=== PATIENT | female | born 1975 | race Caucasian/White ===

== ENCOUNTER 2022-04-06 12:57 | Observation (INO) ==
--- NOTE | 2022-04-06 13:27 | Emergency Department Note ---
Impression & Plan Transient cerebral ischemia ED Provider Note CHIEF COMPLAINT: Stroke symptoms HISTORY OF PRESENT ILLNESS: This 46-year-old female patient presents to the emergency department with complaints of left-sided facial numbness and difficulty speaking at approximately 1215 today. She states she was on the telephone when symptoms occurred. Her speech has returned to normal and did start about 15 minutes after the onset of symptoms however she still feels "out of it" and fairly weak. Patient did not have any upper or lower extremity symptoms. She did ambulate from triage into the examination room. Patient does have a history of Raynaud's disease, scleroderma and lupus. She does not take any blood thinners but is currently taking prednisone which she just started 2 weeks ago. She denies any recent illnesses or trauma. REVIEW OF SYSTEMS: A review of systems was performed with positives and pertinent negatives listed in the history of present illness. 10 systems were reviewed and are otherwise negative. ALLERGIES: see below MEDICATIONS: see below PMH: see below SOCIAL HISTORY: see below DDx: Infection, dehydration, metabolic abnormality, hypo/hyperglycemia, electrol yte disturbance, anemia, hypoxia, cardiac sources, intracerebral event, toxicologic, neurologic, as well as other pathologies. PHYSICAL EXAM: Vital signs reviewed. General: Well-appearing 46-year-old female, in no significant distress. HEENT: No scleral icterus, PERRLA, neck supple. Atraumatic. Moist mucous membranes. Cardiovascular: Regular rate and rhythm, no extra sounds. Pulmonary: Clear to auscultation bilaterally, normal work of breathing. Abdomen: Soft, nontender, nondistended, positive bowel sounds. Musculoskeletal: Atraumatic, no peripheral edema. Neurologic: Patient awake alert and oriented x 3, speech is slow and deliberate but clear. Equal strength in all 4 extremities, negative pronator drift. Intact [id number]. Skin: Warm, dry, no rash EMERGENCY DEPARTMENT COURSE/MDM: This patient was evaluated and appeared to be in no significant distress. A stroke alert had been called from triage. I did respond to the patient's bedside and she was taken to CAT scan almost immediately for CT/CTA of the head and neck. Neurologic exam was largely intact. There is no focal neurologic deficit identified. She does have some risk factors including lupus. Patient was started on IV hydration. CT imaging is negative for focal stenosis or occlusion. There is no evidence of acute ischemia. Patient remained asymptomatic and if anything improved slightly with her speech timing. Case was discussed with Dr. Berrios the hospitalist service will evaluate the patient for admission and further management. Patient was made aware of the findings and plan and agreed. MONITORING: An order for cardiac monitoring was placed and the patient is noted to be in a NSR at 84 beats per minute. RADIOLOGY: See below EKG: Normal sinus rhythm at [address] segments. QTC of 393. Normal axis, no PVC, no PAC. No previous EKGs for comparison. DISPOSITION: Admission Past Med/Surg History Medical History Eosinophilic pneumonia ILD (interstitial lung disease) Lupus Multinodular thyroid Raynaud phenomenon Family History Aunt Thyroid disease Grandmother (Maternal) Thyroid disease Social History Smoking Status: Never smoker Preferred Language: Syriac Feels Safe at Home: Yes Allergies Allergies Allergy/AdvReac Type Severity Reaction Status Date / Time No Known Allergies Allergy Unverified 04/06/22 14:20 Home Meds Home Medications Medication Instructions Recorded Confirmed prednisone 10 mg tablet 10 mg PO .TAPER UD 04/06/22 04/06/22 Results & Data (ED) Vital Signs Vital Signs - 24 hr 04/06/22 13:04 04/06/22 13:28 04/06/22 13:39 Temperature 36.8 C Temperature Source Temporal Artery Scan Pulse Rate 84 Pulse Rate [Right Finger] 72 Respiratory Rate 16 20 Respiratory Effort / Characteristics Non-Labored Non-Labored Respiratory Depth Normal Normal Respiratory Pattern Regular Blood Pressure 147/68 H Blood Pressure [Right Arm] 137/68 Blood Pressure Mean 94 Blood Pressure Mean [Right Arm] 91 Pulse Oximetry 100 100 Oxygen Delivery Method Room Air Room Air Room Air Sepsis Recent Fever Within 48 Hours No Sepsis New/Unexplained Change in Mental Status No Sepsis Action Taken by Nursing No Action Required 04/06/22 13:45 04/06/22 14:01 04/06/22 14:14 Temperature Temperature Source Pulse Rate Pulse Rate [Right Finger] 72 68 72 Respiratory Rate 24 20 16 Respiratory Effort / Characteristics Non-Labored Non-Labored Non-Labored Respiratory Depth Normal Normal Normal Respiratory Pattern Blood Pressure Blood Pressure [Right Arm] 137/68 149/83 H 137/82 Blood Pressure Mean Blood Pressure Mean [Right Arm] 91 105 100 Pulse Oximetry 100 100 100 Oxygen Delivery Method Room Air Room Air Room Air Sepsis Recent Fever Within 48 Hours Sepsis New/Unexplained Change in Mental Status Sepsis Action Taken by Nursing 04/06/22 14:22 Temperature Temperature Source Pulse Rate Pulse Rate [Right Finger] 72 Respiratory Rate 20 Respiratory Effort / Characteristics Non-Labored Respiratory Depth Normal Respiratory Pattern Blood Pressure Blood Pressure [Right Arm] 157/92 H Blood Pressure Mean Blood Pressure Mean [Right Arm] 113 Pulse Oximetry 99 Oxygen Delivery Method Room Air Sepsis Recent Fever Within 48 Hours Sepsis New/Unexplained Change in Mental Status Sepsis Action Taken by [facility] Medications Current Medication List: was personally reviewed by me Laboratory Data Attestation: I reviewed the patient's lab results. Result diagrams: 04/06/22 13:19 04/06/22 13:19 Lab Results 04/06/22 04/06/22 04/06/22 Range/Units 13:19 13:19 13:19 WBC 8.50 (4.8-10.8) K/ul RBC 4.45 (3.93-5.22) M/uL Hgb 13.4 (12.0-16.0) g/dl POC Hgb (12.0-16.0) g/dl Hct 41.3 (34.1-44.9) % POC Hct (37-47) % MCV 92.8 (80.0-100.0) fL MCH 30.1 (25.0-34.0) pg MCHC 32.4 (32.0-36.0) g/dL RDW Std Deviation 47.4 H (36.4-46.3) fL RDW Coeff of Agnes 14.1 (11.5-14.5) % Plt Count 287 (130-400) K/uL MPV 10.3 (9.4-12.3) fL Immature Gran % (Auto) 0.5 % Neut % (Auto) 67.9 % Lymph % (Auto) 25.5 % Catron % (Auto) 5.3 % Eos % (Auto) 0.6 % Baso % (Auto) 0.2 % Neut # (Auto) 5.77 (1.4-6.5) K/uL Lymph # (Auto) 2.17 (1.2-3.4) K/uL Catron # (Auto) 0.45 (0.24-0.82) K/uL Eos # (Auto) 0.05 (0-0.50) K/uL Baso # (Auto) 0.02 (0-0.2) K/uL Immature Gran # (Auto) 0.04 H (0.00-0.02) K/uL PT 10.7 (9.0-12.0) Seconds INR 1.0 (0.9-1.1) APTT 25.0 (21.0-31.0) Seconds PTT Ratio 0.9 POC Sodium (135-144) mmol/L Sodium 138 (136-145) mmol/L POC Potassium (3.3-5.0) mmol/L Potassium 3.7 (3.5-5.1) mmol/L POC Chloride (101-112) mmol/L Chloride 103 (98-107) mmol/L Carbon Dioxide 30 (21-32) mmol/L POC Total CO2 (24-31) mmol/L Anion Gap 5 (3-11) POC Anion Gap (16-25) mmol/L POC BUN (7-18) mg/dl BUN 11 (6-23) mg/dl Creatinine 0.78 (0.6-1.2) mg/dl POC Creatinine (0.6-1.3) mg/dl Est Cr Clr Drug Dosing 103.4 ml/min Est GFR ( Amer) 106.4 ml/min Est GFR (Non-Af Amer) 91.8 ml/min BUN/Creatinine Ratio 14.1 (10-20) Glucose 94 (70-99(Fasting)) mg/dl POC Glucose (other) (70-99) mg/dl Calcium 9.2 (8.5-10.1) mg/dl POC Ioniz Calcium Manjinder (1.12-1.32) mmol/l Magnesium 1.9 (1.7-2.4) mg/dl Total Bilirubin 0.4 (0.2-1.0) mg/dl AST 9 L (13-39) U/L ALT 9 (7-52) U/L Alkaline Phosphatase 51 (34-104) U/L Troponin I High Sens 11.1 (0-14) pg/ml Total Protein 7.9 (6.0-8.3) gm/dl Albumin 3.8 (3.4-5.0) gm/dl Globulin 4.1 H (2.5-4.0) gm/dl Albumin/Globulin Ratio 0.9 (0.9-2) TSH (0.300-4.500) uIu/ml SARS-CoV-2, RNA, NAAT (NEGATIVE) 04/06/22 04/06/22 04/06/22 Range/Units 13:21 13:22 13:36 WBC (4.8-10.8) K/ul RBC (3.93-5.22) M/uL Hgb (12.0-16.0) g/dl POC Hgb 14.3 (12.0-16.0) g/dl Hct (34.1-44.9) % POC Hct 42 (37-47) % MCV (80.0-100.0) fL MCH (25.0-34.0) pg MCHC (32.0-36.0) g/dL RDW Std Deviation (36.4-46.3) fL RDW Coeff of Agnes (11.5-14.5) % Plt Count (130-400) K/uL MPV (9.4-12.3) fL Immature Gran % (Auto) % Neut % (Auto) % Lymph % (Auto) % Catron % (Auto) % Eos % (Auto) % Baso % (Auto) % Neut # (Auto) (1.4-6.5) K/uL Lymph # (Auto) (1.2-3.4) K/uL Catron # (Auto) (0.24-0.82) K/uL Eos # (Auto) (0-0.50) K/uL Baso # (Auto) (0-0.2) K/uL Immature Gran # (Auto) (0.00-0.02) K/uL PT (9.0-12.0) Seconds INR (0.9-1.1) APTT (21.0-31.0) Seconds PTT Ratio POC Sodium 140 (135-144) mmol/L Sodium (136-145) mmol/L POC Potassium 3.7 (3.3-5.0) mmol/L Potassium (3.5-5.1) mmol/L POC Chloride 102 (101-112) mmol/L Chloride (98-107) mmol/L Carbon Dioxide (21-32) mmol/L POC Total CO2 30 (24-31) mmol/L Anion Gap (3-11) POC Anion Gap 14.0 L (16-25) mmol/L POC BUN 10 (7-18) mg/dl BUN (6-23) mg/dl Creatinine (0.6-1.2) mg/dl POC Creatinine 0.8 (0.6-1.3) mg/dl Est Cr Clr Drug Dosing ml/min Est GFR ( Amer) ml/min Est GFR (Non-Af Amer) ml/min BUN/Creatinine Ratio (10-20) Glucose (70-99(Fasting)) mg/dl POC Glucose (other) 95 (70-99) mg/dl Calcium (8.5-10.1) mg/dl POC Ioniz Calcium Manjinder 1.21 (1.12-1.32) mmol/l Magnesium (1.7-2.4) mg/dl Total Bilirubin (0.2-1.0) mg/dl AST (13-39) U/L ALT (7-52) U/L Alkaline Phosphatase (34-104) U/L Troponin I High Sens (0-14) pg/ml Total Protein (6.0-8.3) gm/dl Albumin (3.4-5.0) gm/dl Globulin (2.5-4.0) gm/dl Albumin/Globulin Ratio (0.9-2) TSH 1.235 (0.300-4.500) uIu/ml SARS-CoV-2, RNA, NAAT NEGATIVE (NEGATIVE) Administered Medications Sodium Chloride (Nss 1000ml) 1,000 mls @ 100 mls/hr IV .Q10H GAUTAM Stop: 05/06/22 13:14 Last Admin: 04/06/22 13:56 Dose: 100 mls/hr Documented By: NRB Discontinued Medications Ioversol (Optiray 320 500ml) 120 ml IV ONCE ONE Stop: 04/06/22 13:29 Last Admin: 04/06/22 13:28 Dose: 120 ml Documented By: CRISTIAN Imaging Data Radiologist's Impression: Chest X-Ray 04/06/22 13:12 XR chest 1V portable CLINICAL HISTORY: Stroke Like Symptoms TECHNIQUE: Single frontal radiograph of the chest was obtained. Comparison: None available at the time of this dictation. FINDINGS: No lines and tubes are seen. The cardiomediastinal silhouette is mildly prominent. The lungs are clear. No evidence of pleural effusion or pneumothorax. IMPRESSION: No acute chest disease. ACT 112: Negative or not required by law. Electronically signed by: Rehan Muñoz M.D. 04/06/2022 2:[address] 04/06/22 13:[address] DOSE: HISTORY: Stroke Like Symptoms TECHNIQUE: Multiaxial CT images of the head were performed without the use of intravenous contrast. Automated exposure control was utilized for this study. A dose lowering technique was utilized adhering to the principles of ALARA. Comparison: None. Findings: The paranasal sinuses and mastoid air cells are clear. The calvarium and skull base are intact. The ventricles and sulci are within normal limits. There is no mass, hematoma, midline shift, or acute infarct. Impression: No acute intracranial abnormality. ACT 112: Negative or not required by law. Electronically signed by: Malcom Kingston M.D. 04/06/2022 1:38 PM Head CTA 04/06/22 13:[address], HEAD & NECK CTA HISTORY: Headache. Slurred speech. Stroke Like Symptoms TECHNIQUE: Multiaxial CT images of the head were performed following the intravenous administration of contrast to evaluate the major cerebral vessels. Multiaxial CT images of the neck were also performed following the intravenous administration of contrast to evaluate the major cervical vessels. Maximum intensity projection images were also obtained. A dose lowering technique was utilized adhering to the principles of ALARA. COMPARISON: Head CT 04/06/2022. FINDINGS: There is no mass, hematoma, midline shift, or acute infarct. Visualized intracranial internal carotid arteries, distal vertebral arteries, and basilar artery are widely patent. There is no significant stenosis, occlusion, or aneurysm seen within the bilateral ACAs, MCAs, or historian research assistant. The major dural venous sinuses are patent. The aortic arch and proximal great vessels are widely patent. There is no significant stenosis, occlusion, or dissection identified within the bilateral common carotid, internal carotid, or vertebral arteries. Multinodular right thyroid gland with the largest measuring 1.7 cm within the lower pole. IMPRESSION: 1. No significant stenosis, occlusion, or aneurysm within the [place]. 2. No significant stenosis, occlusion, or dissection identified within the carotid or vertebral arteries. 3. Multinodular right thyroid gland. Follow-up nonemergent thyroid ultrasound recommended for further evaluation. ACT 112: Negative or not required by law. Electronically signed by: Malcom Kingston M.D. 04/06/2022 1:44 PM Neck CTA 04/06/22 13:[address], HEAD & NECK CTA HISTORY: Headache. Slurred speech. Stroke Like Symptoms TECHNIQUE: Multiaxial CT images of the head were performed following the intravenous administration of contrast to evaluate the major cerebral vessels. Multiaxial CT images of the neck were also performed following the intravenous administration of contrast to evaluate the major cervical vessels. Maximum intensity projection images were also obtained. A dose lowering technique was utilized adhering to the principles of ALARA. COMPARISON: Head CT 04/06/2022. FINDINGS: There is no mass, hematoma, midline shift, or acute infarct. Visualized intracranial internal carotid arteries, distal vertebral arteries, and basilar artery are widely patent. There is no significant stenosis, occlusion, or aneurysm seen within the bilateral ACAs, MCAs, or historian research assistant. The major dural venous sinuses are patent. The aortic arch and proximal great vessels are widely patent. There is no significant stenosis, occlusion, or dissection identified within the bilateral common carotid, internal carotid, or vertebral arteries. Multinodular right thyroid gland with the largest measuring 1.7 cm within the lower pole. IMPRESSION: 1. No significant stenosis, occlusion, or aneurysm within the [place]. 2. No significant stenosis, occlusion, or dissection identified within the carotid or vertebral arteries. 3. Multinodular right thyroid gland. Follow-up nonemergent thyroid ultrasound recommended for further evaluation. ACT 112: Negative or not required by law. Electronically signed by: Malcom Kingston M.D. 04/06/2022 1:44 PM Blood Pressure Blood Pressure Findings: Elevated blood pressure Blood Pressure Disposition: further management by hospitalist Discharge Plan Visit Data Chief Complaint: Stroke/CVA Symptoms Stated Complaint: HEADACHE, SLURRED SPEECH-STROKE SX ED Provider: Taylor Mcdonnell Discharge Problem: Transient cerebral ischemia Patient Disposition: Admitted As Inpatient Discharge Instructions Interventions: ED Discharge Assessment Last Done: 04/06/22 14:50
[2022-04-06] MEDS ORDERED: OPTIRAY 320 500ml IV ONE (13:28)
[2022-04-06 13:30] LABS: Basophils # (auto) 0.02 K/uL (0-0.2); Basophils % (auto) 0.2 %; Eosinophils # (auto) 0.05 K/uL (0-0.50); Eosinophils % (auto) 0.6 %; Hematocrit (blood only) 41.3 % (34.1-44.9); Hemoglobin 13.4 g/dl (12.0-16.0); Immature Granulocytes # (auto) 0.04 K/uL (0.00-0.02); Immature Granulocytes % (auto) 0.5 %; Lymphocytes # (auto) 2.17 K/uL (1.2-3.4); Lymphocytes % (auto) 25.5 %; Mean Corpuscular Hemoglobin 30.1 pg (25.0-34.0); Mean Corpuscular Hgb Conc 32.4 g/dL (32.0-36.0); Mean Corpuscular Volume 92.8 fL (80.0-100.0); Mean Platelet Volume 10.3 fL (9.4-12.3); Monocytes # (auto) 0.45 K/uL (0.24-0.82); Monocytes % (auto) 5.3 %; Neutrophils # (auto) 5.77 K/uL (1.4-6.5); Neutrophils % (auto) 67.9 %; Platelet Count 287 K/uL (130-400); RDW Coefficient of Variation 14.1 % (11.5-14.5); RDW Standard Deviation 47.4 fL (36.4-46.3); Red Blood Count 4.45 M/uL (3.93-5.22)
[2022-04-06 13:35] LABS: iSTAT Creatinine 0.8 mg/dl (0.6-1.3); iSTAT Hemoglobin 14.3 g/dl (12.0-16.0); iSTAT Ionized Calcium 1.21 mmol/l (1.12-1.32); iSTAT Potassium 3.7 mmol/L (3.3-5.0)
[2022-04-06 13:40] LABS: Partial Thromboplastin Ratio 0.9; Prothrombin Time 10.7 Seconds (9.0-12.0)
--- NOTE | 2022-04-06 13:40 | CT Scan Report ---
HEAD CT NONCONTRAST CT DOSE: HISTORY: Stroke Like Symptoms TECHNIQUE: Multiaxial CT images of the head were performed without the use of intravenous contrast. A utomated exposure control was utilized for this study. A dose lowering technique was utilized adheri ng to the principles of ALARA. Comparison: None. Findings: The paranasal sinuses and mastoid air cells are clear. The calvarium and skull base are int act. The ventricles and sulci are within normal limits. There is no mass, hematoma, midline shift, or acute infarct. Impression: No acute intracranial abnormality. ACT 112: Negative or not required by law. Electronically signed by: Malcom Kingston M.D. 04/06/2022 1:38 PM
--- NOTE | 2022-04-06 13:45 | CT Scan Report ---
Noncontrast head CT, HEAD & NECK CTA HISTORY: Headache. Slurred speech. Stroke Like Symptoms TECHNIQUE: Multiaxial CT images of the head were performed following the intravenous administration o f contrast to evaluate the major cerebral vessels. Multiaxial CT images of the neck were also perform ed following the intravenous administration of contrast to evaluate the major cervical vessels. Maxim um intensity projection images were also obtained. A dose lowering technique was utilized adhering to the principles of ALARA. COMPARISON: Head CT 04/06/2022. FINDINGS: There is no mass, hematoma, midline shift, or acute infarct. Visualized intracranial internal carotid arteries, distal vertebral arteries, and basilar artery are widely patent. There is no significant s tenosis, occlusion, or aneurysm seen within the bilateral ACAs, MCAs, or inspection machine tender. The major dural venous sinuses are patent. The aortic arch and proximal great vessels are widely patent. There is no significant stenosis, occ lusion, or dissection identified within the bilateral common carotid, internal carotid, or vertebral arteries. Multinodular right thyroid gland with the largest measuring 1.7 cm within the lower pole. IMPRESSION: 1. No significant stenosis, occlusion, or aneurysm within the [place]. 2. No significant stenosis, occlusion, or dissection identified within the carotid or vertebral arter ies. 3. Multinodular right thyroid gland. Follow-up nonemergent thyroid ultrasound recommended for further evaluation. ACT 112: Negative or not required by law. Electronically signed by: Malcom Kingston M.D. 04/06/2022 1:44 PM
--- NOTE | 2022-04-06 13:45 | CT Scan Report ---
Noncontrast head CT, HEAD & NECK CTA HISTORY: Headache. Slurred speech. Stroke Like Symptoms TECHNIQUE: Multiaxial CT images of the head were performed following the intravenous administration o f contrast to evaluate the major cerebral vessels. Multiaxial CT images of the neck were also perform ed following the intravenous administration of contrast to evaluate the major cervical vessels. Maxim um intensity projection images were also obtained. A dose lowering technique was utilized adhering to the principles of ALARA. COMPARISON: Head CT 04/06/2022. FINDINGS: There is no mass, hematoma, midline shift, or acute infarct. Visualized intracranial internal carotid arteries, distal vertebral arteries, and basilar artery are widely patent. There is no significant s tenosis, occlusion, or aneurysm seen within the bilateral ACAs, MCAs, or hydraulic punch press operator. The major dural venous sinuses are patent. The aortic arch and proximal great vessels are widely patent. There is no significant stenosis, occ lusion, or dissection identified within the bilateral common carotid, internal carotid, or vertebral arteries. Multinodular right thyroid gland with the largest measuring 1.7 cm within the lower pole. IMPRESSION: 1. No significant stenosis, occlusion, or aneurysm within the [place]. 2. No significant stenosis, occlusion, or dissection identified within the carotid or vertebral arter ies. 3. Multinodular right thyroid gland. Follow-up nonemergent thyroid ultrasound recommended for further evaluation. ACT 112: Negative or not required by law. Electronically signed by: Malcom Kingston M.D. 04/06/2022 1:44 PM
[2022-04-06] MEDS: SODIUM CHLORIDE 0.9% 1000ML 1,000 ML IV SCH ×2 (13:56→23:24)
--- NOTE | 2022-04-06 14:19 | History & Physical Report ---
Date of Service April 06, 2022 Assessment & Plan (1) Dysarthria: Plan: Strokelike deficits, CVA versus TIA Dysarthria, left-sided numbness lasting about 15 minutes which improved by time of ER assessment Thrombolytic not indicated based on improving symptoms No leukocytosis, hemoglobin normal, platelets normal 287 Sodium, potassium normal on admission. Creatinine with normal baseline, 0.8 on admission Head/neck CTA: 1. No significant stenosis, occlusion, or aneurysm within the [place] of [place]. 2. No significant stenosis, occlusion, or dissection identified within the carotid or vertebral arteries. 3. Multinodular right thyroid gland. Follow-up nonemergent thyroid ultrasound recommended for further evaluation. - CT-H: No acute intracranial abnormality. CXR: No acute findings EKG: NSR, no ST segment changes, QTC 393 MRI pending, echo pending -Patient with daughter at time of visit, per her outside machinist supervisor request we will make PCU status rather than med telemetry Aspirin 81 mg started Atorvastatin 40 mg ordered pending lipid results, if LDL significantly elevated increase dose to 80 mg Multi nodular right thyroid Thyroid ultrasound canceled as patient had this along with a FNA, being followed as outpatient. TSH: Pending History of eosinophilic pneumonia, ILD Followed by [facility] pulmonology Continue prednisone taper, currently at 40 mg daily next due to taper to 30 mg on 04/11 Lupus, scleroderma On prednisone taper No acute change in management Reynauds No acute change in management DVT prophylaxis: Lovenox starting tomorrow Diet: Heart healthy after dysphagia screen Disposition: PCU for completion of stroke eval CODE STATUS: Full code (2) Stroke-like episode: (3) Raynaud phenomenon: (4) Lupus: (5) ILD (interstitial lung disease): (6) Multinodular thyroid: (7) Eosinophilic pneumonia: History of Present Illness Primary Care Provider: NO PCP Kike is a 46-year-old female with a past medical history of [] who presents to the ER with left-sided numbness and dysarthria at 12:15 PM. At time of emergency provider assessment her speech had returned to normal, reportedly lasted about 15 minutes. No upper or lower extremity weakness/sensory deficits were appreciated on initial emergency department evaluation and she was able to ambulate. Based on improving symptoms TNKase was not indicated. Hx reynauds, ana, scleroderma. here from out of town. Residual generalized weakness without focal weakness. On prednisone for lupus. She is seen at the bedside with her coworker present, person is given to take HPI in the presence of her coworker. She reports that around noon today she developed a left-sided throbbing sometimes sharp headache while at work. She went to walk on the floor when she developed diffuse weakness, tingling in both upper extremities, and slurred speech. She reports that she understood what was being said to her and what she wanted to say, but was slurring and had difficulty forming words. Some report of potential left-sided facial droop which was not present by the time her coworker saw her. Dysarthria lasted about 15 minutes then gradually improved. She did have some global weakness following this, with increased bilateral upper extremity weakness and tingling which gradually improved and at time of hospitalist assessment had full strength and slight tingling in both her fingertips which is similar to her usual rainouts. She denies chest pain, chest pressure, syncope. Does endorse lightheadedness, but no presyncope. She has intermittent shortness of breath at baseline and notes that she is being treated for eosinophilic pneumonia and had recently been diagnosed with ILD by her equipment planner, she did not experience an exacerbation or worsening shortness of breath with her current episode. She reports her eosinophilic pneumonia was diagnosed 1 month ago on bronchoscopy. She had ILD noted on a CT chest prior to that. She also has a history of lupus and scleroderma. She is on a prednisone taper, currently at 40 mg due to decreased to 30 next Sunday. She follows with [facility] in [place] pulmonology and PCP. She denies any history of cardiac disease. Has not had chest pain, chest pressure, or exercise intolerance at any point. No palpitations. No family history of strokes or early [place]. Does have a family history of diabetes, reports she gets lipid and diabetes screenings regularly with her PCP which have been normal. She does not use tobacco products now or formally. Rare social alcohol use. No other substance use. No medication allergies. She reports she does have a family history of thyroid issues in her aunt and maternal grandmother although is not sure what these were. She is aware that she has a nodular thyroid which has been biopsied, and was recommended for annual follow-up. Does not take any aspirin like medications or anticoagulants. Medical History: Reviewed Medications: Reviewed Surgical History: Reviewed Allergies: Reviewed Social History: No tobacco use, rare social alcohol use Code Status: Full code Allergies Allergy/AdvReac Type Severity Reaction Status Date / Time No Known Allergies Allergy Unverified 04/06/22 14:20 Home Medications Medication Instructions Recorded Confirmed Type prednisone 10 mg tablet 10 mg PO .TAPER UD 04/06/22 04/06/22 History Past Med/Surg History Medical History Eosinophilic pneumonia ILD (interstitial lung disease) Lupus Multinodular thyroid Raynaud phenomenon Family History (Updated 04/06/22 @ 14:53 by Momo Blunt MD) Aunt Thyroid disease Grandmother (Maternal) Thyroid disease Social History Smoking Status: Never smoker Preferred Language: Afghan Feels Safe at Home: Yes Review of Systems Review of Systems: All systems reviewed & are unremarkable except as noted in HPI & below Physical Exam Physical Exam: General: A&Ox3. NAD. Cooperative. HEENT: Atraumatic, normocephalic. Pulm: CTAB A&P. -wheezes, -rales, -rhonchi. Symmetrical chest rise. No increased work of breathing. No respiratory distress. Cardiac: RRR, -mrg. Radial pulses intact and symmetrical. Abdominal: Nontender, nondistended, soft. BS present. CRANIAL NERVES: II: Pupils equal and reactive, no relative afferent pupillary defect, no VF cuts III, IV, : EOM intact, no gaze preference or deviation, no nystagmus. V: normal sensation in V1, V2, and V3 segments bilaterally VII: no asymmetry, no nasolabial fold flattening VIII: normal hearing to speech IX, X: normal palatal elevation, no uvular deviation XI: 5/5 head turn and 5/5 shoulder shrug bilaterally XII: midline tongue protrusion MOTOR: RUE: 5/5 Shoulder internal rotation, external rotation, flexion, extension, abduction, adduction 5/5 Elbow flexion/extension, wrist flexion/extension 5/5 children's attendant strength, finger flexion/extension, interosseus LUE: 5/5 Shoulder internal rotation, external rotation, flexion, extension, abduction, adduction 5/5 Elbow flexion/extension, wrist flexion/extension 5/5 children's attendant strength, finger flexion/extension, interosseus RLE: 5/5 to hip, ankle dorsiflexion/plantarflexion LLE: 5/5 to hip flexion, ankle dorsiflexion/plantarflexion no clonus SENSORY: Sensation intact to soft touch in hands and feet without asymmetry. Does endorse some trace of bilateral tingling in all 5 fingertips similar to her past Raynaud's. COORD: Normal finger to nose Results & Data Results & Data ([facility]) Vital Signs (Past 12 Hours) Vital Signs Temp Pulse Pulse Resp BP BP Pulse Ox 04/06/22 14:14 72 16 137/82 100 04/06/22 14:01 68 20 149/83 H 100 04/06/22 13:45 72 24 137/68 100 04/06/22 13:39 72 20 137/68 100 04/06/22 13:28 04/06/22 13:04 36.8 C 84 16 147/68 H 100 O2 Del Method 04/06/22 14:14 Room Air 04/06/22 14:01 Room Air 04/06/22 13:45 Room Air 04/06/22 13:39 Room Air 04/06/22 13:28 Room Air 04/06/22 13:04 Room Air PG Care Time/CCT Total # of Minutes Spent Total Time Spent with Patient: Total time spent is greater than 50% in coordination of care (as documented) at patient's floor/unit and/or counseling patient: Coding Level of Care Code INT OBSERVATION CARE 70M LVL 3 Diagnoses Dysarthria R47.1 Stroke-like episode R29.90 Raynaud phenomenon I73.00 Lupus M32.9 ILD (interstitial lung disease) J84.9 Multinodular thyroid E04.2 Eosinophilic pneumonia J82.81
--- NOTE | 2022-04-06 14:20 | XRay Report ---
XR chest 1V portable CLINICAL HISTORY: Stroke Like Symptoms TECHNIQUE: Single frontal radiograph of the chest was obtained. Comparison: None available at the time of this dictation. FINDINGS: No lines and tubes are seen. The cardiomediastinal silhouette is mildly prominent. The lungs are tommy r. No evidence of pleural effusion or pneumothorax. IMPRESSION: No acute chest disease. ACT 112: Negative or not required by law. Electronically signed by: Rehan Muñoz M.D. 04/06/2022 2:19 PM
[2022-04-06 14:21] LABS: Troponin I High Sensitivity 11.1 pg/ml (0-14)
[2022-04-06 14:38] LABS: Albumin Globulin Ratio 0.9 (0.9-2); Albumin Level 3.8 gm/dl (3.4-5.0); BUN Creatinine Ratio 14.1 (10-20); Bilirubin,Total 0.4 mg/dl (0.2-1.0); Calcium 9.2 mg/dl (8.5-10.1); Creatinine Clr Calc Pharmacy 103.4 ml/min; Est GFR (African American) 106.4 ml/min; Est GFR (Non-African American) 91.8 ml/min; Globulin 4.1 gm/dl (2.5-4.0); Magnesium 1.9 mg/dl (1.7-2.4); Potassium 3.7 mmol/L (3.5-5.1); Total Protein 7.9 gm/dl (6.0-8.3)
[2022-04-06] MEDS ORDERED: ONDANSETRON INJ 2 MG/ML 2 ML VIAL IV PRN (15:14)
[2022-04-06] MEDS ORDERED: ACETAMINOPHEN 325 MG TAB PO PRN (15:14)
[2022-04-06] MEDS ORDERED: PHARMACIST DISCHARGE MED REC CONSULT PRN (15:14)
--- NOTE | 2022-04-06 16:53 | XCELERA ---
[id number]
--- NOTE | 2022-04-07 05:08 | Electrocardiogram Report ---
Test Reason : Blood Pressure : / mmHG Vent. Rate : 070 BPM Atrial Rate : 070 BPM P-R Int : 150 ms QRS Dur : 080 ms QT Int : 364 ms P-R-T Axes : 059 069 041 degrees QTc Int : 393 ms Normal sinus rhythm Normal ECG No previous ECGs available Confirmed by Rick Bowman ([id number]) on 04/07/2022 5:08:31 AM Referred By: ISAURA NARANJO Confirmed By:Rick Bowman
--- NOTE | 2022-04-07 07:14 | Magnetic Resonance Report ---
MRI OF THE BRAIN WITHOUT IV CONTRAST CLINICAL HISTORY: Transient ischemic attack. COMPARISON STUDY: CT of the brain dated 04/06/2022. TECHNIQUE: MRI of the brain was performed utilizing various T1 and T2-weighted sequences in the axial , sagittal, and coronal planes. IV contrast was not administered for this examination. FINDINGS: Brain parenchyma: The brain parenchyma is normal in appearance. There is no hemorrhage or mass effect . There is no restricted diffusion to suggest acute ischemia. Zepeda-white matter differentiation is pr eserved. No extra-axial fluid collection is seen. The cerebellar tonsils are normal in configuration. Ventricles, sulci, and cisterns: Normal in configuration. Pituitary and sella: Unremarkable. Intracranial vasculature: Normal flow voids are maintained at the skull base. Orbits: The bony orbits are grossly intact. Orbital contents are normal in appearance. Sinuses and mastoids: Clear. Calvarium: Unremarkable. Cervical cord: Partially visualized cervical spinal cord is normal in morphology and signal intensity . IMPRESSION: No intracranial abnormality is identified. ACT 112: Negative or not required by law. Electronically signed by: Thompson Welsh M.D. 04/07/2022 7:13 AM
[2022-04-07] MEDS: SODIUM CHLORIDE 0.9% 1000ML 1,000 ML IV SCH (08:28)
[2022-04-07 08:43] LABS: Hematocrit (blood only) 39.3 % (34.1-44.9); Hemoglobin 12.5 g/dl (12.0-16.0); Mean Corpuscular Hemoglobin 29.6 pg (25.0-34.0); Mean Corpuscular Hgb Conc 31.8 g/dL (32.0-36.0); Mean Corpuscular Volume 93.1 fL (80.0-100.0); Mean Platelet Volume 10.1 fL (9.4-12.3); Platelet Count 274 K/uL (130-400); RDW Coefficient of Variation 14.4 % (11.5-14.5); RDW Standard Deviation 48.9 fL (36.4-46.3); Red Blood Count 4.22 M/uL (3.93-5.22); White Blood Count 12.05 K/ul (4.8-10.8)
[2022-04-07] MEDS ORDERED: ENOXAPARIN INJ 40 MG/0.4 ML SYR SQ SCH (09:00)
[2022-04-07] MEDS ORDERED: ATORVASTATIN 40 MG TAB PO SCH (09:00)
[2022-04-07] MEDS ORDERED: predniSONE 20 MG TAB PO SCH (09:00)
[2022-04-07 09:14] LABS: Basophils # (auto) 0.01 K/uL (0-0.2); Basophils % (auto) 0.1 %; Eosinophils # (auto) 0.16 K/uL (0-0.50); Eosinophils % (auto) 1.3 %; Immature Granulocytes # (auto) 0.04 K/uL (0.00-0.02); Immature Granulocytes % (auto) 0.3 %; Lymphocytes # (auto) 7.13 K/uL (1.2-3.4); Lymphocytes % (auto) 59.2 %; Neutrophils # (auto) 4.11 K/uL (1.4-6.5); Neutrophils % (auto) 34.1 %
[2022-04-07 09:52] LABS: BUN Creatinine Ratio 11.8 (10-20); Calcium 8.7 mg/dl (8.5-10.1); Chol HDL Ratio 3.5 (0-5); Creatinine Clr Calc Pharmacy 104.6 ml/min; Est GFR (African American) 109.8 ml/min; Est GFR (Non-African American) 94.7 ml/min; Potassium 3.4 mmol/L (3.5-5.1)
[2022-04-07 10:50] LABS: Estimated Average Glucose 103 mg/dl; Hemoglobin A1C 5.2 % (4.5-5.6)
[2022-04-07] MEDS ORDERED: ASPIRIN 81 MG ECTAB PO STA (17:24)
[2022-04-07] MEDS ORDERED: STROKE PATIENT DISCHARGE STA (17:32)
--- NOTE | 2022-04-07 17:35 | Discharge Summary ---
Date of Service April 07, 2022 Admission HPI Per Admitting Provider Kike is a 46-year-old female with a past medical history of [] who presents to the ER with left-sided numbness and dysarthria at 12:15 PM. At time of emergency provider assessment her speech had returned to normal, reportedly lasted about 15 minutes. No upper or lower extremity weakness/sensory deficits were appreciated on initial emergency department evaluation and she was able to ambulate. Based on improving symptoms TNKase was not indicated. Hx reynauds, ana, scleroderma. here from out of town. Residual generalized weakness without focal weakness. On prednisone for lupus. She is seen at the bedside with her coworker present, person is given to take HPI in the presence of her coworker. She reports that around noon today she developed a left-sided throbbing sometimes sharp headache while at work. She went to walk on the floor when she developed diffuse weakness, tingling in both upper extremities, and slurred speech. She reports that she understood what was being said to her and what she wanted to say, but was slurring and had difficulty forming words. Some report of potential left-sided facial droop which was not present by the time her coworker saw her. Dysarthria lasted about 15 minutes then gradually improved. She did have some global weakness following this, with increased bilateral upper extremity weakness and tingling which gradually improved and at time of hospitalist assessment had full strength and slight tingling in both her fingertips which is similar to her usual rainouts. She denies chest pain, chest pressure, syncope. Does endorse lightheadedness, but no presyncope. She has intermittent shortness of breath at baseline and notes that she is being treated for eosinophilic pneumonia and had recently been diagnosed with ILD by her shake cutter, she did not experience an exacerbation or worsening shortness of breath with her current episode. She reports her eosinophilic pneumonia was diagnosed 1 month ago on bronchoscopy. She had ILD noted on a CT chest prior to that. She also has a history of lupus and scleroderma. She is on a prednisone taper, currently at 40 mg due to decreased to 30 next Sunday. She follows with [facility] in [place] pulmonology and PCP. She denies any history of cardiac disease. Has not had chest pain, chest pressure, or exercise intolerance at any point. No palpitations. No family history of strokes or early [place]. Does have a family history of diabetes, reports she gets lipid and diabetes screenings regularly with her PCP which have been normal. She does not use tobacco products now or formally. Rare social alcohol use. No other substance use. No medication allergies. She reports she does have a family history of thyroid issues in her aunt and maternal grandmother although is not sure what these were. She is aware that she has a nodular thyroid which has been biopsied, and was recommended for annual follow-up. Does not take any aspirin like medications or anticoagulants. Medical History: Reviewed Medications: Reviewed Surgical History: Reviewed Allergies: Reviewed Social History: No tobacco use, rare social alcohol use Code Status: Full code Principal Diagnosis Transient ischemic attack Discharge Exam Constitutional WD/WN, vitals as above Eyes PERRL, conjunctivae normal, anicteric sclerae ENMT external ear and nose normal, oropharynx normal Neck trachea midline, no thyromegaly Respiratory normal respiratory effort, lungs clear to auscultation Cardiovascular RRR, no murmur, no edema Gastrointestinal (Abdomen) normal bowel sounds, soft, nontender, no hepatosplenomegaly Musculoskeletal no cyanosis or clubbing, extremities motor strength 5/5 Skin no rashes, warm and dry Neurologic moves all extremities and awake; no focal motor deficits and not confused Psychiatric A+Ox3, euthymic affect Discharge Data Allergies Allergy/AdvReac Type Severity Reaction Status Date / Time No Known Allergies Allergy Unverified 04/06/22 14:20 Ordered Studies 04/06/22 13:12 CT angio head w con Stat CT angio neck with con Stat CT head/brain wo con Stat IMPRESSION: 1. No significant stenosis, occlusion, or aneurysm within the [place] of [place]. 2. No significant stenosis, occlusion, or dissection identified within the carotid or vertebral arteries. 3. Multinodular right thyroid gland. Follow-up nonemergent thyroid ultrasound recommended for further evaluation. 04/06/22 15:14 MR brain wo con Routine IMPRESSION: No intracranial abnormality is identified. Hospital Course (1) Dysarthria: Kike Aponte is a 46 year old female observed overnight at [facility] from April 06 - 2021 due to slurred speech. No stroke was seen on MRI and no significant stenosis of carotid/vertebral arteries. No atrial fibrillation was seen on telemetry overnight. Multinodular right thyroid gland was noted incidentally but reportedly this is already being followed up. Her symptoms completely resolved and she was started on aspirin and atorvastatin for ongoing stroke risk reduction. However she has also been lacking sleep and unclear if her symptoms were just due to this. Recommended she follows up with a neurologist closer to home on discharge. (2) Stroke-like episode: (3) Raynaud phenomenon: (4) Lupus: (5) ILD (interstitial lung disease): (6) Multinodular thyroid: (7) Eosinophilic pneumonia: Total Time Total Time Spent Total Time Spent (In Minutes): 40 Discharge Plan Discharge Items Patient Disposition: Home - Self-Care Reason For Visit: TIA/CVA EVAL Discharge Diagnosis: Transient ischemic attack (mini stroke) Activity: Resume your previous activity Non-emergency contact: Primary Care Provider Call non-emergency contact if: you have any medication questions and your symptoms worsen Follow-up/Referrals: PCP,NO [Primary Care Provider] - Diet: Heart Healthy Addtl Attending Provider Instructions: You were observed overnight at [facility] from April 06 - 2021 due to slurred speech. No stroke was seen on MRI and no significant . No atrial fibrillation was seen on telemetry overnight. Multinodular right thyroid gland was noted incidentally but reportedly this is already being followed up. Your symptoms completely resolved and you were started on aspirin and atorvastatin for ongoing stroke risk reduction. Recommend you follow up with a neurologist closer to home - please contact your primary care provider for a referral. Kind regards, Dr Pierce Jay Pending Studies at Discharge: No Stand-Alone Forms: My [facility], Smoking Cessation, Medications to Prevent Stroke Medications and DC Order Prescriptions: New atorvastatin 40 mg Tablet 40 mg PO QAM Qty: 30 0RF aspirin 81 mg tablet,delayed release (DR/EC) 81 mg PO DAILY Qty: 30 0RF Continued prednisone 10 mg tablet 10 mg PO .TAPER UD Rx Instructions: is now down to 4 tabs daily for 1 week, then 3 tabs daily for 1 week, then 2 tabs daily for 1 week, then 1 tab daily Discharge Orders: Discharge Order (Routine); Ordered 04/07/22 Ordered By: Pierce Lester/Other Patient Handouts: ED TIA: Transient Ischemic Attack Admission Data Admit Date/Time: 04/06/22 14:24 Attending Provider: Pierce Jay Admit Provider: Momo Blunt Primary Care Provider: PCP,NO Other Interventions: Discharge Summary Assessment (RN) Last Done: 04/07/22 17:45 Coding Level of Care Code 32708 OBS Care - Discharge Diagnoses Dysarthria R47.1 Stroke-like episode R29.90 Raynaud phenomenon I73.00 Lupus M32.9 ILD (interstitial lung disease) J84.9 Multinodular thyroid E04.2 Eosinophilic pneumonia J82.81
--- NOTE | 2022-04-10 09:12 | Pharmacy Report ---
Pharmacist Stroke Counseling - Date of Service April 10, 2022 - Scope: Pharmacy has been consulted to provide medication discharge counseling for this patient admitted with transient ischemic attack as per the Pharmacist Discharge Counseling for Stroke Patients Protocol. - Medications on Discharge: Home Medications Medication Instructions Recorded Confirmed prednisone 10 mg tablet 10 mg PO .TAPER UD 04/06/22 04/06/22 New Rx's Medication Instructions Recorded aspirin 81 mg tablet,delayed 81 mg PO DAILY #30 tabs 04/07/22 release atorvastatin 40 mg tablet 40 mg PO QAM #30 tabs 04/07/22 - Action: The above medications, specifically ones for stroke treatment/prophylaxis, have been reviewed in detail with the patient and/or patient inside outside sales representative(s) prior to discharge. This includes indication, common adverse reactions, drug interactions, and medication administration. Medication counseling has been employed using the teach-back method to ensure understanding. - Outcome: The patient and/or patient inside outside sales representative(s) have demonstrated understanding of the medications. Additional comments: - Patient confirmed that she picked up prescriptions on Sunday04/08/22, day after discharge - She has no concerns/issues with medications at this time - No obvious barriers to medication compliance identified - Patient stated that she will be setting up outpatient appointments this week and is aware that these medication will be indefinite until a provider tells her otherwise Thank you for allowing pharmacy to be involved in the care of this patient. Please call [phone] with any additional questions
[2022-04-11] MEDS ORDERED: predniSONE 10 MG TABLET PO SCH (09:00)
== END 2022-04-07 18:20 | disposition home or self-care (01) ==
LOC: 2S 12:57 → ED 12:57 → SUATTDRO 14:24 → 2S 14:50